=== PATIENT | female | born 1945 | race Caucasian/White ===

== ENCOUNTER 2021-04-22 13:46 | Emergency (ER) | payer MEDICARE, BC ==
--- NOTE | 2021-04-22 15:31 | EDM.PDOC ---
ED HPI GENERAL MEDICAL PROBLEM - General Chief Complaint: Lower Extremity Injury/Pain Stated Complaint: SWOLLEN LEFT LEG Time Seen by Provider: 04/22/21 14:40 Source of Information: Reports: Patient, Family History Limitations: Reports: No Limitations - History of Present Illness INITIAL COMMENTS - FREE TEXT/NARRATIVE: 75-year-old female who is been having problems with catching and sharp pains in her left knee for the past several weeks with certain range of motion. Weightbearing seems to trigger it when she is turning certain ways. She put a knee brace on her left knee for a couple of days earlier this week and it felt real good for a day but it was putting pressure on the medial proximal calf starting to cause pain so she took it off. Over the past 12 to 24 hours she has had increased swelling of her left lower extremity and is concerned she may have a blood clot. She still has intermittent pain on the lateral and medial knee, but no significant popliteal pain or thigh pain. No fevers or chills. No specific trauma. Onset: Gradual Duration: Day(s): (Knee pain has been increasing for several weeks, swelling for the last 2 to 3 days) Location: Reports: Lower Extremity, Left Left Leg Pain Score (Numeric/FACES): 7 - Related Data Allergies Allergy/AdvReac Type Severity Reaction Status Date / Time atorvastatin [From Lipitor] Allergy Cannot Verified 04/22/21 14:53 Remember Home Meds: Home Meds Aspirin [Low Dose Aspirin EC] 325 mg PO DAILY 06/09/14 [History] Calcium Carbonate/Vitamin D3 [Calcium 600 + Vit D 400] 1 tab PO BID 06/09/14 [History] [place]-3/DHA/Epa/Fish Oil [Fish Oil 1,000 mg Softgel] 1 tab PO BID 06/09/14 [History] Simvastatin 20 mg PO DAILY 06/09/14 [History] Cholecalciferol (Vitamin D3) [Vitamin D3] 2,000 unit PO DAILY 04/22/21 [History] Past Medical History HEENT History: Reports: Cataract Cardiovascular History: Reports: Blood Clots/VTE/DVT, High Cholesterol Gastrointestinal History: Reports: None Genitourinary History: Reports: Renal Calculus 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: Musculoskeletal History: Reports: Arthritis, Neck Pain, Chronic Immunologic History: Reports: Other (See Below) Other Immunologic History: sjhorgen Oncologic (Cancer) History: Reports: Basal Cell Carcinoma, Breast - Infectious Disease History Infectious Disease History: Reports: Chicken Pox, Measles, Mumps, Rubella, Shingles - Past Surgical History HEENT Surgical History: Reports: Cataract Surgery Cardiovascular Surgical History: Reports: None GI Surgical History: Reports: Appendectomy, Cholecystectomy, Colostomy Female Surgical History: Reports: Breast Biopsy Musculoskeletal Surgical History: Reports: Arthroscopic Procedure, Shoulder Surgery Oncologic Surgical History: Reports: Biopsy of Breast, Mastectomy Dermatological Surgical History: Reports: Skin Biopsy Social & Family History - Family History Family Medical History: No Pertinent Family History - Tobacco Use Tobacco Use Status *Q: Never Tobacco User - Caffeine Use Caffeine Use: Reports: None - Recreational Drug Use Recreational Drug Use: No - Living Situation & Occupation Living situation: Reports: Review of Systems - Review of Systems Review Of Systems: See Below Constitutional: Denies: Fever Respiratory: Reports: No Symptoms. Denies: Shortness of Breath, Cough Cardiovascular: Denies: Chest Pain, Lightheadedness, Palpitations GI/Abdominal: Denies: Abdominal Pain, Nausea, Vomiting Genitourinary: Reports: No Symptoms Musculoskeletal: Denies: Back Pain Skin: Reports: Other (She has a healing abrasion on the lateral side of her right lower extremity) Neurological: Reports: No Symptoms Psychiatric: Reports: No Symptoms ED EXAM, GENERAL - Physical Exam Exam: See Below Exam Limited By: No Limitations General Appearance: Alert, No Apparent Distress Head: Atraumatic Respiratory/Chest: No Respiratory Distress, Lungs Clear Cardiovascular: Regular Rate, Rhythm GI/Abdominal: Non-Tender Extremities: Other (Patient does have increased pain with lateral and medial stressing of the knee, no effusion and no popliteal tenderness. The medial aspect of the gastrocnemius is tender, and she has 1+ pitting edema at the foot. Minimal pitting edema of the right foot) Course - Vital Signs Last Recorded V/S: Last Vital Signs Temp 97.5 F 04/22/21 14:38 Pulse 90 04/22/21 14:21 Resp 18 04/22/21 14:21 BP 162/69 H 04/22/21 14:21 Pulse Ox 99 04/22/21 14:21 - Orders/Labs/Meds Orders: Active Orders 24 hr Category Date Time Status VL Duplex Lwr Ext Veins Ltd Lt [US] Stat Exams 04/22/21 15:04 Taken - Re-Assessments/Exams Free Text/Narrative Re-Assessment/Exam: 04/22/21 17:44 DVT ultrasound of the left leg was obtained and was negative. Patient was encouraged to wear compression stockings or Guille wrapping of the leg, and elevate when able. Increase activity as tolerated and recheck with orthopedics if the knee continues to be a problem with pain or swelling. An intra-articular injection or further evaluation with an MRI may be worthwhile. Departure - Departure Time of Disposition: 16:31 Disposition: Home, Self-Care 01 Clinical Impression: Edema, peripheral Left knee pain Qualifiers: Chronicity: acute Qualified Code(s): M25.562 - Pain in left knee - Discharge Information Instructions: Acute Knee Pain, Adult, Edema Referrals: PCP,None [Primary Care Provider] - Forms: ED Department Discharge Care Plan Goals: Support stockings or Guille wrapping of your legs may be beneficial. Continue activity as tolerated and consider orthopedic consultation if your knee continues to bother you. Your exam today showed no evidence of clots in your legs. Sepsis Event Note (ED) - Evaluation Sepsis Screening Result: No Definite Risk - Focused Exam Vital Signs: Vital Signs Temp Pulse Resp BP Pulse Ox 04/22/21 14:38 97.5 F 04/22/21 14:21 90 18 162/69 H 99 - My Orders Last 24 Hours: My Active Orders 04/22/21 15:04 VL Duplex Lwr Ext Veins Ltd Lt [US] Stat - Assessment/Plan Last 24 Hours: My Active Orders 04/22/21 15:04 VL Duplex Lwr Ext Veins Ltd Lt [US] Stat
--- NOTE | 2021-04-23 08:45 | US ---
VL Duplex Lwr Ext Veins Ltd Lt INDICATION: swelling, pain, dvt concern FINDINGS: Ultrasound examination of the lower extremity using Doppler and compressive technique demonstrates that the common femoral, femoral, and popliteal veins are patent, and negative for thrombus. The calf veins were segmentally visualized and are negative where seen. In the greater saphenous vein in the proximal calf there is clot identified. Patient has a small Narayan's cyst. IMPRESSION: Thrombophlebitis of the greater saphenous vein in the upper calf Negative for deep venous thrombosis. Small Narayan's cyst
== END 2021-04-22 16:31 | disposition home or self-care (01) ==
LOC: JP.ED 13:46
DX: M25.562 Pain in left knee (principal); R60.0 Localized edema; E78.00 Pure hypercholesterolemia, unspecified; M19.90 Unspecified osteoarthritis, unspecified site; Z88.8 Allergy status to other drugs, medicaments and biological substances; Z79.82 Long term (current) use of aspirin; Z79.899 Other long term (current) drug therapy
CPT/HCPCS: 93971-26-LT; 93971-LT; 99283-25